=== PATIENT | male | born 1980 | race Caucasian/White ===

== ENCOUNTER → 2018-06-13 | Outpatient (REF) | payer BC | LOC: M SMT 13:43 | PROVIDERS: ATTEND Urology | DX: Z30.2 Encounter for sterilization (principal) ==

== ENCOUNTER → 2018-08-13 | Outpatient (REF) | payer BC ==
[2018-08-13 13:10] LABS: SEMEN APPEARANCE OPAQUE (OPAQUE)
[2018-08-13 13:11] LABS: SEMEN VISCOSITY LIQUID (LIQUID); SEMEN VOLUME 3.5 ml (2.0-5.0); WBC CONCENTRATION <=1 M/ml (<=1 M/ml)
== END ==
LOC: M SMT 12:48
PROVIDERS: ATTEND Urology
DX: Z30.2 Encounter for sterilization (principal)

== ENCOUNTER → 2020-11-07 | Outpatient (CLI) | payer OTHER ==
--- NOTE | 2020-11-10 09:00 | REP ---
INDICATION: GANGLION, LT WRIST. COMPARISON: None. TECHNIQUE: Multiple sequences obtained in the axial, coronal and sagittal planes. FINDINGS: Triangular fibrocartilage complex:No evidence of tear. Scapholunate and lunatotriquetral ligaments: Intact. Flexor and extensor tendons: There is mild fluid along the extensor pollicis longus tendon and extensor carpi radialis brevis tendon compatible with mild tenosynovitis, at the level of the carpal bones. Carpal tunnel region: No significant abnormality. No abnormal signal in median nerve. At the site of the reported palpable lump, at about the level of the radiocarpal joint, there is a cystic structure along the dorsal aspect of the extensor pollicis longus tendon, measuring approximately 14 x 3 x 15 mm, compatible with a ganglion cyst. Joint fluid: No effusion. Distal radioulnar joint: No significant fluid present. Bone marrow:Subcortical cystic changes seen in the lateral aspect of the lunate bone. There is no bone marrow edema or occult fracture. IMPRESSION: At the site of the reported palpable lump there is a cystic structure along the dorsal aspect of the extensor pollicis longus tendon, 14 x 3 x 15 mm, compatible with a ganglion cyst. There are findings compatible with mild tenosynovitis of the adjacent extensor pollicis longus tendon and extensor carpi radialis brevis tendon. <Electronically signed by Ryan Salmon > 11/10/20 0801
== END ==
LOC: M RAD 08:38
PROVIDERS: ATTEND Orthopaedic Surgery Sports Medicine
DX: M67.432 Ganglion, left wrist (principal)

== ENCOUNTER → 2022-06-16 | Outpatient (CLI) | payer OTHER | LOC: M SOG 08:05 | PROVIDERS: ATTEND Physician Assistant | DX: M67.432 Ganglion, left wrist (principal) ==

== ENCOUNTER 2022-07-04 07:01 | Day surgery (SDC) | payer BC, OTHER ==
[~2022-07-04] VITALS: Ht 177.8 cm; Wt 102.9 kg
[~2022-07-04 07:01] MED LIST: AMBI5TAB PO; D 101000 PO; SEMA0.257 SQ; TEST200I14 IM; VITMTA PO; ceFAZolin SOD 2 GM in IV 1 EA IV ONE
[2022-07-04] MEDS ORDERED: LR 1,000 ML IV SCH (07:35)
[2022-07-04] MEDS ORDERED: BACITRACIN OINTMENT 30GM TUBE As Ordered ONE (08:42)
[2022-07-04] MEDS ORDERED: BUPIVACAINE HCL 0.25% 30ML VIAL As Ordered ONE (08:42)
[2022-07-04] MEDS ORDERED: fentaNYL 250 MCG/5 ML INJECTION As Ordered ONE (08:57)
[2022-07-04] MEDS ORDERED: propofoL 200 MG/20 ML VIAL As Ordered ONE (08:57)
[2022-07-04] MEDS ORDERED: MIDAZOLAM INJ 2MG/2ML VIAL As Ordered ONE (08:57)
[2022-07-04] MEDS ORDERED: ONDANSETRON 4MG 2ML VIAL As Ordered ONE (08:57)
[2022-07-04] MEDS ORDERED: KETOROLAC 60MG 2ML VIAL As Ordered ONE (08:57)
[2022-07-04] MEDS ORDERED: ACETAMINOPHEN 1000MG 100ML IV BAG As Ordered ONE (08:57)
[2022-07-04] MEDS ORDERED: LIDOCAINE 2% 100MG/5ML SDV (FOR ANES.) As Ordered ONE (08:57)
[2022-07-04] MEDS ORDERED: ceFAZolin 2 GM/D5W 50 ML IV BAG As Ordered ONE (09:08)
[2022-07-04] MEDS ORDERED: PERC5TAB12 PO (09:53)
[2022-07-04 10:24] VITALS: BP 132/74
== END 2022-07-04 10:27 | disposition home or self-care (01) ==
LOC: M SDC 07:01
PROVIDERS: ATTEND Orthopaedic Surgery Hand Surgery
DX: M67.432 Ganglion, left wrist (principal); Z88.5 Allergy status to narcotic agent; Z79.899 Other long term (current) drug therapy; K21.9 Gastro-esophageal reflux disease without esophagitis; F17.220 Nicotine dependence, chewing tobacco, uncomplicated
CPT/HCPCS: 25111; 88305; J0131; J0690; J1100; J1885; J2250; J2405; J3010; S0020